=== PATIENT | female | born 1980 | race Caucasian/White ===

== ENCOUNTER 2022-02-02 08:49 | Emergency (ER) | payer SELFPAY ==
[2022-02-02 08:51] VITALS: BP 147/96; PULSE 87; RESP 18; TEMP 36.9; O2SAT 97; BMI 26.6
--- NOTE | 2022-02-02 09:14 | ED_ITS ---
HPI - Female Genitourinary General: Chief complaint: Urogenital-Female Stated complaint: FLANK PAIN Time Seen by Provider: 02/02/22 08:57 Source: patient Mode of arrival: EMS Limitations: no limitations History of Present Illness: 41-year-old female presents to the ER today for left flank pain and difficulty urinating. Patient reports she was seen 1 week ago at [facility] and was told she had a very large stone that might not passed. She reports she was given antibiotics however she has not picked them up due to transportation issues. Patient reports during the night she began having increased pain. She reports this morning she was only able to urinate small drops and had stabbing pain in the left side. She denies any fever or chills. Denies any blood in the urine. Patient reports she has been taking cranberry pills at home. Patient does admit to drug use this a.m. Review of Systems General: Reports: 10 or more systems reviewed and unremarkable except in HPI and below Physical Exam Narrative: EXAM NARRATIVE: Patient is in no acute distress. Patient's story is very difficult to follow. Const: COMMON NORMALS: no acute distress, average body habitus, patient oriented x3, healthy appearing, alert and well nourished Lymph: LYMPHATIC: no lymphadenopathy noted Resp: COMMON NORMALS: normal respiratory effort, No retractions, No use of accessory muscles and clear to auscultation bilaterally AUSCULTATION: clear to auscultation bilaterally Cardio: COMMON NORMALS: regular rate and regular rhythm RATE: regular rate RHYTHM: regular rhythm GI: COMMON NORMALS: Normal to inspection, nondistended, normoactive bowel sounds present, Soft to palpation and non-tender PALPATION: Yes Soft to palpation : COMMON NORMALS: Yes no CVA tenderness BLADDER/KIDNEY EXAM: Yes no CVA tenderness Back/Pelvis: COMMON NORMALS: no CVA tenderness, no thoracic nor lumbar tendern ess and thoraco-lumbar ROM normal Extremity: COMMON NORMALS: normal to inspection and full ROM Neuro: COMMON NORMALS: patient oriented x3 SENSORIUM/ORIENTATION: Yes alert Psych: APPEARANCE: Yes disheveled ACTIVITY/MOTOR BEHAVIOR: Yes disorganized behavior SPEECH: Yes slurred Skin: COMMON NORMALS: no rashes or lesions noted GENERAL SKIN EXAM: no rashes or lesions noted Course ED course: 41-year-old female presents to the ER today for left flank pain and difficulty urinating x1 week. Patient reports she was seen at [facility] last week and was told she had a large kidney stone that might not passed. Patient was given medication however she reports she did not fill it due to t ransportation issues. Patient reports she had increased pain during the night and this morning. She had difficulty urinating this morning and reports only a few drops of urination. She denies any fever or chills. On exam patient is in no acute distress. Patient did admit to drug use this morning and likely that is why her story is difficult to follow. We will try to get medical records from [facility] before proceeding with any more imaging at this time. We will go ahead and get a UA. Reevaluation(s): Reevaluation #1: Attempted to obtain medical records from [facility]. They reported they had never seen this patient before. We will proceed with a CT. Time: 09:27 Vital Signs: Vital signs: Vital Signs Temperature 98.4 F 02/02/22 08:51 Pulse Rate 87 02/02/22 08:51 Respiratory Rate 18 02/02/22 08:51 Blood Pressure 147/96 02/02/22 08:51 Pulse Oximetry 97 02/02/22 08:51 MDM - Female Medical Decision Making 41-year-old female presents to the ER today for left flank pain and difficulty urinating x1 week. Patient reports she was seen at [facility] last week and was told she had a large kidney stone that might not passed. Patient was given medication however she reports she did not fill it due to transportation issues. Patient reports she had increased pain during the night and this morning. She had difficulty urinating this morning and reports only a few drops of urination. She denies any fever or chills. On exam patient is in no acute distress. Patient did admit to drug use this morning and likely that is why her story is difficult to follow. After contacting [facility] and finding out patient has not been there, we went ahead and did a CT stone protocol here. There does not appear to be any stones in the ureter at this time. Patient was given tamsulosin and fluids while here also given Toradol for pain. Patient is noted to have low potassium so was given 40 meQ of potassium here. Patient also noted to have a UTI with nitrate positive. Patient given 1 dose of Cipro here but needs to supervisor forming and tempering her prescription outpatient. Discussed findings with patient. Recommended she go supervisor forming and tempering her medication at this time in order for the UTI to improve. I think likely the UTI is the cause of patient's symptoms. Recommended she follow-up with PCP in 5 to 7 days. Return to the ER with new or worsening symptoms. Patient verbalized understanding and is in agreement with the treatment plan. Lab Data : 02/02/22 09:10 02/02/22 09:10 Radiology Impressions Abdomen/Pelvis CT 02/02/22 09:26 IMPRESSION: 1. No hydronephrosis or hydroureter. 2. No acute intra-abdominal process. No inflammatory process. No obstruction. 3. No free fluid within the pelvis or within the dependent portions of the peritoneum. 4. Appendix normal. 5. Large amount of stool throughout the large bowel. Laboratory Results WBC 9.1 10^3/uL (4.0-10.0) 02/02/22 09:10 RBC 4.20 10^6/uL (4.1-5.3) 02/02/22 09:10 Hgb 13.4 g/dL (11.5-15.3) 02/02/22 09:10 Hct 38.7 % (37.0-47.0) 02/02/22 09:10 MCV 92.1 fl (81-99) 02/02/22 09:10 MCH 31.9 pg (28.0-34.0) 02/02/22 09:10 MCHC 34.6 g/dL (30.0-36.0) 02/02/22 09:10 RDW 12.4 % (12.1-15.1) 02/02/22 09:10 Plt Count 319 10^3/cmm (130-400) 02/02/22 09:10 MPV 11.4 fL (7.4-10.4) H 02/02/22 09:10 Neut % (Auto) 70.0 % 02/02/22 09:10 Lymph % (Auto) 20.5 % 02/02/22 09:10 Citrus % (Auto) 7.8 % 02/02/22 09:10 Eos % (Auto) 1.1 % 02/02/22 09:10 Baso % (Auto) 0.4 % 02/02/22 09:10 Neut # (Auto) 6.33 10^3/uL (1.8-7.7) 02/02/22 09:10 Lymph # (Auto) 1.9 10^3/uL (0.8-4.8) 02/02/22 09:10 Citrus # (Auto) 0.7 10^3/uL (0.2-0.9) 02/02/22 09:10 Eos # (Auto) 0.1 10^3/uL (0.0-0.8) 02/02/22 09:10 Baso # (Auto) 0.0 10^3/uL (0.0-0.1) 02/02/22 09:10 Nucleated RBC % (auto) 0 % 02/02/22 09:10 Nucleated RBCs # 0.0 /100WBC 02/02/22 09:10 Sodium 141 mmol/L (136-145) 02/02/22 09:10 Potassium 3.0 mmol/L (3.5-5.1) L 02/02/22 09:10 Chloride 104 mmol/L (98-107) 02/02/22 09:10 Carbon Dioxide 26 mmol/L (22-29) 02/02/22 09:10 Anion Gap 14.0 (5-19) 02/02/22 09:10 BUN 10 mg/dL (6-20) 02/02/22 09:10 Creatinine 0.7 mg/dL (0.5-0.9) 02/02/22 09:10 GFR Calculation 92.2 mL/min (90-130) 02/02/22 09:10 Glucose 100 mg/dL (65-115) 02/02/22 09:10 Calculated Osmolality 291 mOsm/kg (285-295) 02/02/22 09:10 Calcium 9.1 mg/dL (8.5-10.5) 02/02/22 09:10 Total Bilirubin 0.3 mg/dL (0.15-1.2) 02/02/22 09:10 AST 12 U/L (0-32) 02/02/22 09:10 ALT 10 U/L (0-33) 02/02/22 09:10 Alkaline Phosphatase 76 IU/L (35-105) 02/02/22 09:10 Total Protein 7.2 g/dL (6.6-8.7) 02/02/22 09:10 Albumin 4.2 g/dL (3.5-5.2) 02/02/22 09:10 Globulin 3.0 g/dL (1.3-4.6) 02/02/22 09:10 Urine Color Yellow (Yellow) 02/02/22 09:30 Urine Appearance Hazy (CLEAR) A 02/02/22 09:30 Urine pH 5 (5-7) 02/02/22 09:30 Ur Specific [place] 1.030 (1.005-1.030) 02/02/22 09:30 Urine Protein Neg (Negative) 02/02/22 09:30 Urine Glucose (UA) Norm (Normal) 02/02/22 09:30 Urine Ketones Negative (Negative) 02/02/22 09:30 Urine Blood 3+ (Negative) H 02/02/22 09:30 Urine Nitrate Positive (Negative) H 02/02/22 09:30 Urine Bilirubin Neg (Negative) 02/02/22 09:30 Urine Urobilinogen Norm mg/dL (Negative) 02/02/22 09:30 Ur Leukocyte Esterase 2+ (Negative) H 02/02/22 09:30 Urine RBC 40-50 /hpf (0-2) H 02/02/22 09:30 Urine WBC Too numerous to cnt /hpf (0-5) H 02/02/22 09:30 Ur Squamous Epith Cells 5-10 /hpf (0-5) H 02/02/22 09:30 Ur Transition Epith Cell 0-4 /hpf 02/02/22 09:30 Amorphous Sediment Not Reportable 02/02/22 09:30 Urine Bacteria 3+ /hpf (NONE) H 02/02/22 09:30 Critical Care Time Critical Care Time: Critical Care Time: No Discharge Plan Discharge Patient Disposition: Home Clinical Impression: Urinary tract infection, Hypokalemia Condition: Stable Prescriptions: New ciprofloxacin HCl 250 mg tablet 250 mg PO BID 5 Days Qty: 10 0RF Discharge Orders: Discharge ED (Routine); Ordered 02/02/22 Ordered By: Jennifer Carter Discharge Diet: Usual diet Discharge Activity: Resume usual activity Patient Instructions: Opioid Safety Activity Restrictions/Additional Instructions: Take Cipro as prescribed. Push fluids. Increase oral potassium intake. Follow-up with PCP in 3 to 5 days. Return to the ER with new or worsening symptoms. Coding Level of Care Code ED Learning And Development Assistant for Chg Fwd Exam Comprehensive
--- NOTE | 2022-02-02 09:26 | CTR_ITS ---
PROCEDURE INFORMATION: Exam: CT Abdomen And Pelvis Without Contrast Exam date and time: 02/02/2022 10:19 AM Age: 41 years old Clinical indication: Abdominal pain; Flank; Left; Additional info: L flankl pain TECHNIQUE: Imaging protocol: Computed tomography of the abdomen and pelvis without contrast. Radiation optimization: All CT scans at this facility use at least one of these dose optimization techniques: automated exposure control; mA and/or kV adjustment per patient size (includes targeted exams where dose is matched to clinical indication); or iterative reconstruction. COMPARISON: No relevant prior studies available. RADIATION DOSE METRICS: Total DLP (mGy-cm): 1135.33 FINDINGS: Liver: Normal. No mass. Gallbladder and bile ducts: Normal. No calcified stones. No ductal dilation. Pancreas: Normal. No ductal dilation. Spleen: Small accessory spleen. Adrenal glands: Normal. No mass. Kidneys and ureters: Renal calcifications bilaterally largest on the right of approximately 5 mm and on the left inferiorly of approximately 6 mm x 2 mm. No hydronephrosis or hydroureter. Stomach and bowel: Large amount of stool throughout the large bowel. Appendix: Appendix normal. Intraperitoneal space: No acute intra-abdominal process. No inflammatory process. No obstruction. No free fluid within the pelvis or within the dependent portions of the peritoneum. Vasculature: Unremarkable. No abdominal aortic aneurysm. Lymph nodes: Unremarkable. No enlarged lymph nodes. Urinary bladder: Unremarkable as visualized. Reproductive: Unremarkable as visualized. Bones/joints: Unremarkable. No acute fracture. Soft tissues: Unremarkable. CT/CT kidney stone [id number] IMPRESSION: 1. No hydronephrosis or hydroureter. 2. No acute intra-abdominal process. No inflammatory process. No obstruction. 3. No free fluid within the pelvis or within the dependent portions of the peritoneum. 4. Appendix normal. 5. Large amount of stool throughout the large bowel.
[2022-02-02 09:38] LABS: Basophils % 0.4 %; Eosinophils # 0.1 10^3/uL (0.0-0.8); Eosinophils % 1.1 %; Hematocrit 38.7 % (37.0-47.0); Hemoglobin 13.4 g/dL (11.5-15.3); Lymphocytes # 1.9 10^3/uL (0.8-4.8); Lymphocytes % 20.5 %; Mean Corpuscular HGB Conc 34.6 g/dL (30.0-36.0); Mean Corpuscular Hemoglobin 31.9 pg (28.0-34.0); Mean Corpuscular Volume 92.1 fl (81-99); Mean Platelet Volume 11.4 fL (7.4-10.4); Monocytes # 0.7 10^3/uL (0.2-0.9); Monocytes % 7.8 %; Neutrophils # 6.33 10^3/uL (1.8-7.7); Nucleated Red Blood Cells % 0 %; Platelet Count 319 10^3/cmm (130-400); Red Cell Distribution Width 12.4 % (12.1-15.1); White Blood Count 9.1 10^3/uL (4.0-10.0)
[2022-02-02 09:52] LABS: Alanine Aminotransferase 10 U/L (0-33); Albumin Level 4.2 g/dL (3.5-5.2); Alkaline Phosphatase 76 IU/L (35-105); Aspartate Amino Transferase 12 U/L (0-32); Blood Urea Nitrogen 10 mg/dL (6-20); Calcium 9.1 mg/dL (8.5-10.5); Carbon Dioxide 26 mmol/L (22-29); Chloride 104 mmol/L (98-107); Glomerular Filtration Rate 92.2 mL/min (90-130); Glucose 100 mg/dL (65-115); Osmolality Calculated 291 mOsm/kg (285-295); Sodium 141 mmol/L (136-145); Total Bilirubin 0.3 mg/dL (0.15-1.2); Total Protein 7.2 g/dL (6.6-8.7)
[2022-02-02 10:11] LABS: Add Urine Microscopic? YES; Bilirubin Urine Neg (Negative); Blood Urine 3+ (Negative); Glucose Urine UA Norm (Normal); Ketones Urine Negative (Negative); Leukocyte Esterase Urine 2+ (Negative); Nitrate Urine Positive (Negative); Protein Urine Neg (Negative); Urine Appearance Hazy (CLEAR); Urine Color Yellow (Yellow); Urobilinogen Urine Norm (Negative); pH Urine 5 (5-7)
[2022-02-02 10:17] LABS: Add Urine Culture? Yes; Bacteria Urine 3+ /hpf; RBC Urine 40-50 /hpf (0-2); Transitional Epi Cells Urine 0-4 /hpf; WBC Urine TOO NUMEROUS TO CNT /hpf (0-5)
[2022-02-02] MEDS: sodium chloride 0.9% 500 ML 999 ML IV (11:12)
[2022-02-02] MEDS: ketorolac 30 mg/mL INJ IVP (11:13)
[2022-02-02] MEDS: ciprofloxacin 500 mg Tablet 250 MG PO (11:15)
[2022-02-02] MEDS: tamsulosin 0.4 mg Capsule PO (11:15)
[2022-02-02] MEDS: potassium chloride ER 20 mEq Tablet 40 MEQ PO (11:15)
== END 2022-02-02 12:27 | disposition home or self-care (01) ==
PROVIDERS: Emergency Provider Physician Assistant
DX: N39.0 Urinary tract infection, site not specified (principal); E87.6 Hypokalemia
CPT/HCPCS: 74176; 80053; 81001; 85025; 87077; 87086; 87186; 96361; 96374; 99284; J1885; J7040

== ENCOUNTER → 2022-04-17 08:51 | Outpatient (BNVA) | payer SELFPAY | PROVIDERS: PCP Nurse Practitioner Family; Visit Provider Nurse Practitioner Family | DX: N39.0 Urinary tract infection, site not specified (principal); J01.90 Acute sinusitis, unspecified | CPT/HCPCS: 81000 ==

== ENCOUNTER → 2022-05-15 10:18 | Outpatient (BNVA) | payer SELFPAY | PROVIDERS: PCP Nurse Practitioner Family; Visit Provider Nurse Practitioner Family | DX: N39.0 Urinary tract infection, site not specified (principal) | CPT/HCPCS: 81000; 87077; 87086; 87184 ==

== ENCOUNTER 2025-02-07 17:01 | Emergency (ER) | payer SELFPAY ==
--- OUTSIDE RECORDS SUMMARY | 2025-01-31 13:40 | XMS_ITS | Encounter Summary ---
Author Organization [facility] Address [address] [place] [address] Care Team Providers Care Varnish Dipper Name Role Phone Stalin Marlow MD Primary Care Provider [phone] Reason for Visit * Reason Comments Flank Pain Perimenopause Lump in Breast Encounter Details Date Type Department Care Team (Late st Contact Info) Description 01/31/2025 1:40 PM CDT Office Visit [facility] [place] [address] [phone] Aimee Metzger NP [address] [place] [address] Urinary tract infection without hematuria, site unspecified (Primary Dx); Flank pain Social History Tobacco Use Types Packs/Day Years Used Date Smoking Tobacco: Never Smokeless Tobacco: Never Alcohol Use Standard Drinks/Week Comments Not Currently 0 (1 standard drink = 0.6 oz pur e alcohol) Feeling Safe Answer Date Recorded Are you in a relationship wi th someone who hurts you emotionally and/or physically? No 01/25/2025 Comments No Sex and Gender Information Value Date Recorded Sex Assigned at Not on file Legal Sex Female 1:34 PM CDT Gender Identity Not on file Sexual Orientation Not on file documented as of this encounter Last Filed Vital Signs Vital Sign Reading Time Taken Comments Blood Pressure 140/75 01/31/2025 1:33 PM CDT Pulse 76 01/31/2025 1:33 PM CDT Temperature 36.8 C (98.2 F) 01/31/2025 1:33 PM CDT Respiratory Rate 17 01/31/2025 1:33 PM CDT Oxygen Saturation 100% 01/31/2025 1:33 PM CDT Inhaled Oxygen Concentration - - Weight 83.9 kg (185 lb) 01/31/2025 1:33 PM CDT Height 167.6 cm (5' 6 ) 01/31/2025 1:33 PM CDT Body Mass Index 29.86 01/31/2025 1:33 PM CDT documented in this encounter Progress Notes * Aimee Metzger NP - 01/31/2025 1:32 PM CDT [facility] 01/31/2025 Subjective: Marisa Robles is a 44 y.o. female who comes today for evaluation of Flank Pain, Perimenopause, and Lump in Breast . History of Present Illness The patient is a 44-year-old female here for kidney function and possible kidney stones. She has been experiencing a severe urinary tract infection (UTI), which has not responded to antibiotic treatment. She sought emergency care in [place], where it was determined that her body was rejecting the antibiotics. She is currently unemployed and without insurance, which has limited her ability to fill prescriptions. She has an appointment scheduled with a primary care physician on 05/09/2025, but she is uncertain about how to proceed with her current health issues, including her cerebral palsy. Review of Systems Constitutional: Negative for chills and fever. Respiratory: Negative for shortness of breath. Cardiovascular: Negative for chest pain. Genitourinary: Positive for dysuria and urgency. Musculoskeletal: Negative for myalgias. All other systems reviewed and are negative. Objective: Vitals: 01/31/25 1333 Temp: 98.2 ??F (36.8 ??C) Pulse: 76 BP: (!) 140/75 Resp: 17 SpO2: 100% Physical Exam Vitals and nursing note reviewed. HENT: Mouth/Throat: Mouth: Mucous membranes are moist. Pharynx: Oropharynx is clear. Eyes: Pupils: Pupils are equal, round, and reactive to light. Cardiovascular: Rate and Rhythm: Normal rate and regular rhythm. Pulses: Normal pulses. Heart sounds: Normal heart sounds. Musculoskeletal: General: Normal range of motion. Cervical back: Normal range of motion and neck supple. Skin: General: Skin is warm and dry. Capillary Refill: Capillary refill takes less than 2 seconds. Neurological: Mental Status: She is alert and oriented to person, place, and time. Mental status is at baseline. Psychiatric: Mood and Affect: Mood normal. Behavior: Behavior normal. Past medical history, surgical history and social history reviewed. Past Medical History: Diagnosis Date Breast lump or mass Cerebral palsy (CMS/HCC) Depression Kidney calculus Assessment/Plan: ICD-10-CM ICD-9-CM 1. Urinary tract infection without hematuria, site unspecified N39.0 599.0 ciprofloxacin HCl (Cipro) 500 mg tablet 2. Flank pain R10.9 789.09 POC URINALYSIS DIPSTICK AUTOMATED Assessment & Plan 1. Urinary Tract Infection (UTI). - Reports significant UTI and history of antibiotic resistance. - Urine culture ordered to identify appropriate antibiotic. - Antibiotic prescription sent to pharmacy; advised to avoid sulfa medications. - Will be contacted to adjust treatment based on culture results. 2. Cerebral Palsy. - Experiencing ongoing issues related to cerebral palsy. - Appointment set for 05/09/2025 with Primary provider; currently without insurance. - Advised to keep the appointment to establish care with a primary provider. - Discussed the importance of managing symptoms and complications. JONA WelchC The author of this note, patient (or authorized brewery representative), and all other persons present consent to the audio recording of this visit for charting documentation purposes. This note was automatically generated by a [employer] AI technology ([employer]), reviewed, edited, and finalized by Aimee Metzger NP. Depression Screen Positive: PHQ-2 score >= 3 or PHQ-9 score >= 9 PHQ-2 Total: 0 (01/31/2025 1:32 PM) DEPRESSION PLAN OF CARE Her depression screen was negative. (PHQ2 <3, PHQ9 <10, [place] <11) documented in this encounter Miscellaneous Notes * Addendum Note - Georgia Workman - 01/31/2025 4:02 PM CDTAddended by: GEOR[place]IA WORKMAN on: 01/31/2025 04:02 PM Modules accepted: Orders documented in this encounter Plan of Treatment Upcoming Encounters Date Type Department Care Team (Late st Contact Info) Description 05/09/2025 4:00 PM CDT Office Visit [facility] [address] [place] [phone] Stalin Marlow MD [address] [place] [phone] documented as of this encounter Procedures Procedure Name Priority Date/Time Associated Diagnosis Comments POC URINALYSIS DIPSTICK AUTOMATED Routine 01/31/2025 5:54 PM CDT Flank pain POC URINALYSIS DIPSTICK AUTOMATED Routine 01/31/2025 3:42 PM CDT Flank pain documented in this encounter Results * (ABNORMAL) POC URINALYSIS DIPSTICK AUTOMATED (01/31/2025 5:54 PM CDT) COLOR UA POC Red(A) Pale to Dark Yellow [facility] CLARITY UA POC Cloudy(A) Clear, Other [facility] GLUCOSE UA POC Negative Negative, Normal [facility] BILIRUBIN UA POC 1+(A) Negative [facility] KETONES UA POC Negative Negative [facility] SPECIFIC GRAVITY UA POC >=1.030 1.000 - 1.030 [facility] BLOOD UA POC 3+(A) Negative [facility] PH UA POC 5.5 5.0 - 8.0 [facility] IC [facility] PROTEIN UA POC 3+(A) Negative [facility] UROBILINOGEN UA POC 1.0 <2.0 mg/dL [facility] NITRITE UA POC Positive(A) Negative [facility] LEUKOCYTE ESTERASE UA POC Trace(A) Negative [facility] KIT LOT NUMBER POC [phone] [facility] KIT EXP DATE POC 02/06/25 [facility] Urine 01/31/2025 5:54 PM CDT Aimee [place] ART TRACER POINT OF CARE TESTING Final Re sult Performing Organization Address [facility] [[email or web address]] Co de Phone Number [facility] CLIA# [id number] [address] [facility] [address] [facility] [address] [place], [place] [address] * (ABNORMAL) POC URINALYSIS DIPSTICK AUTOMATED (01/31/2025 3:42 PM CDT) COLOR UA POC Yellow Pale to Dark Yellow [facility] CLARITY UA POC Clear Clear, Other [facility] GLUCOSE UA POC Negative Negative, Normal [facility] BILIRUBIN UA POC Negative Negative [facility] [place] UA POC Negative Negative [facility] SPECIFIC GRAVITY UA POC 1.010 1.000 - 1.030 [facility] BLOOD UA POC Negative Negative [facility] PH UA POC 6.0 5.0 - 8.0 [facility] IC [facility] PROTEIN UA POC Negative Negative [facility] UROBILINOGEN UA POC 0.2 <2.0 mg/dL [facility] NITRITE UA POC Positive(A) Negative [facility] LEUKOCYTE ESTERASE UA POC 2+(A) Negative [facility] KIT LOT NUMBER POC [phone] [facility] KIT EXP DATE POC 02/06/25 [facility] Urine 01/31/2025 3:42 PM CDT Aimee [place] ART TRACER POINT OF CARE TESTING Final Re sult [facility] CLIA# [id number] [address] [facility] [address] [address] documented in this encounter Visit Diagnoses Diagnosis Urinary tract infection without hematuria, site unspecified- Primary Flank pain Abdominal pain, unspecified site documented in this encounter Care Teams Varnish Dipper Relationship Specialty Start Date End Date Stalin Marlow MD [address] [phone] PCP - General Family Practice 01/31/25 documented as of this encounter
[2025-02-07 17:02] VITALS: PULSE 70; RESP 18; TEMP 36.8; O2SAT 97; BMI 29.8
--- NOTE | 2025-02-07 17:07 | ED_ITS ---
HPI - General Adult 2 General: Chief complaint: General Medical Stated complaint: Heat related Time Seen by Provider: 02/07/25 17:02 Source: patient and EMS Mode of arrival: EMS Limitations: no limitations History of Present Illness: 44-year-old female states that she has b een walking out in the heat for 4 hours states she feels like she is having some heat exhaustion she is feeling weak and tired having some slight nausea she denies passing out denies any chest pain denies any vomiting. States she has felt improved since getting out of the heat. Associated symptoms: Deny chest pain, dyspnea, headache(s), nausea, rash or vomiting Related Data Previous Rx's ?Medication ?Instructions ?Recorded duloxetine 60 mg capsule,delayed 60 mg PO DAILY #30 ca ps 05/15/22 release (Cymbalta) hydroxyzine HCl 25 mg tablet 25 mg PO .at hs PRN itchi ng #30 05/15/22 tabs nitrofurantoin 100 mg PO Q12H 5 days #10 ca ps 05/15/22 monohydrate/macrocrystals 100 mg capsule (Macrobid) Allergies Allergy/AdvReac Type Severity Reaction Status Date / Time cephalexin Allergy ALGY-Rash Verified 05/15/22 09:52 Review of Systems 2 Const: Reports: fatigue; Denies: fever(s), chills, body aches or change in appetite ENMT: Denies: throat pain or dental pain Card: Denies: chest pain Resp: Denies: dyspnea GI: Denies: abdominal pain, nausea, vomiting or diarrhea Musc: Denies: neck pain or back pain Skin/Breast: Denies: rash Neuro: Denies: headache(s) PFSH ED 2 PFSH: Medical History Depression Hx of septic shock PTSD (post-traumatic stress disorder) Hx of recurrent urinary tract infection Family History Mother Psychiatric illness Father Drug overdose CAD (coronary artery disease) Social History Smoking and tobacco/nicotine status: never used tobacco/nicotine Physical Exam 2 Const: COMMON NORMALS: no acute distress, patient oriented x3 and healthy appearing HENMT: COMMON NORMALS: normocephalic and atraumatic HEAD & SCALP: n ormocephalic and atraumatic Neck/C-Spine: COMMON NORMALS: full ROM and supple Chest: COMMONS NORMALS: normal inspection of the chest Resp: COMMON NORMALS: normal respiratory effort Cardio: COMMON NORMALS: regular rate, regular rhythm and No murmurs present (Cardio) RATE: regular rate RHYTHM: regular rhythm Extremity: COMMON NORMALS: normal to inspection and full ROM Neuro: COMMON NORMALS: patient oriented x3, moves all extremities and no focal motor deficits Psych: COMMON NORMALS: mental status grossly normal, Normal thought process present and cooperative THOUGHT PROCESS: Normal thought process present Skin: COMMON NORMALS: no rashes or lesions noted and no wounds GENERAL SKIN EXAM: no rashes or lesions noted Course 2 Vital Signs: Vital signs: Vital Signs Temperature 98.2 F 02/07/25 17:02 Pulse Rate 70 02/07/25 17:02 Respiratory Rate 18 02/07/25 17:08 Blood Pressure 145/88 02/07/25 17:44 Pulse Oximetry 97 02/07/25 17:02 Oxygen Delivery Me thod Room Air 02/07/25 17:02 MDM - General Adult Medical Decision Making Patient presents here with heat exposure kidney function here is normal feels improved after fluids she stable for discharge follow-up with PCP return if worsening. Medical Records I reviewed the patient's medical records. Lab Data I reviewed the patient's lab results. 02/07/25 16:11 02/07/25 16:11 Laboratory Results WBC 11.19 10^3/uL (3.29-11.43) 02/07/25 16:11 RBC 4.85 10^6/uL (3.85-5.65) 02/07/25 16:11 Hgb 15.10 g/dL (11.27-16.99) 02/07/25 16:11 Hct 46.5 % (36-47) 02/07/25 16:11 MCV 95.9 fl (85-98) 02/07/25 16:11 MCH 31.1 pg (27-33) 02/07/25 16:11 MCHC 32.5 g/dL (30-55) 02/07/25 16:11 RDW 13.1 % (12.1-15.1) 02/07/25 16:11 Plt Count 436 10^3/cmm (157-399) H 02/07/25 16:11 MPV 11.7 fL (7.4-10.4) H 02/07/25 16:11 Neut % (Auto) 77.3 % 02/07/25 16:11 Lymph % (Auto) 14.6 % 02/07/25 16:11 Orange % (Auto) 5.0 % 02/07/25 16:11 Eos % (Auto) 2.2 % 02/07/25 16:11 Baso % (Auto) 0.6 % 02/07/25 16:11 Neut # (Auto) 8.65 10^3/uL (1.8-7.7) H 02/07/25 16:11 Lymph # (Auto) 1.6 10^3/uL (0.8-4.8) 02/07/25 16:11 Orange # (Auto) 0.6 10^3/uL (0.2-0.9) 02/07/25 16:11 Eos # (Auto) 0.3 10^3/uL (0.0-0.8) 02/07/25 16:11 Baso # (Auto) 0.1 10^3/uL (0.0-0.1) 02/07/25 16:11 Nucleated RBC % (auto) 0 % 02/07/25 16:11 Nucleated RBCs # 0.0 /100WBC 02/07/25 16:11 Sodium 151 mmol/L (136-145) H 02/07/25 16:11 Potassium 3.6 mmol/L (3.5-5.1) 02/07/25 16:11 Chloride 111 mmol/L (98-107) H 02/07/25 16:11 Carbon Dioxide 24 mmol/L (22-29) 02/07/25 16:11 Anion Gap 19.6 (5-19) H 02/07/25 16:11 BUN 10 mg/dL (6-20) 02/07/25 16:11 Creatinine 0.9 mg/dL (0.5-0.9) 02/07/25 16:11 GFR Calculation 68.0 mL/min (90-130) L 02/07/25 16:11 Glucose 135 mg/dL (65-115) H 02/07/25 16:11 Calculated Osmolality 313 mOsm/kg (285-295) H 02/07/25 16:11 Calcium 9.9 mg/dL (8.5-10.5) 02/07/25 16:11 Total Bilirubin 0.4 mg/dL (0.15-1.2) 02/07/25 16:11 AST 14 U/L (0-32) 02/07/25 16:11 ALT 9 U/L (0-33) 02/07/25 16:11 Alkaline Phosphatase 92 U/L (35-105) 02/07/25 16:11 Creatine Kinase 109 U/L (26-192) 02/07/25 16:11 Total Protein 7.7 g/dL (6.6-8.7) 02/07/25 16:11 Albumin 4.6 g/dL (3.5-5.2) 02/07/25 16:11 Globulin 3.1 g/dL (1.3-4.6) 02/07/25 16:11 No radiology studies performed this visit Discharge Plan Discharge Patient Disposition: Home Clinical Impression: Heat exposure Condition: Stable Prescriptions: No Action nitrofurantoin monohyd/m-cryst [Macrobid] 100 mg capsule 100 mg PO Q12H 5 Days Qty: 10 0RF Rx Instructions: must administer with a meal/food duloxetine [Cymbalta] 60 mg capsule,delayed release(DR/EC) 60 mg PO DAILY Qty: 30 0RF hydroxyzine HCl 25 mg tablet 25 mg PO .at hs PRN (Reason: itching) Qty: 30 0RF Discharge Orders: Discharge ED (Routine); Ordered 02/07/25 Ordered By: Astrid Clayton Referrals: Lesly Lopez FNP [Nurse Practitioner, Family Practice] Discharge Diet: Advance as tolerated Discharge Activity: Resume usual activity Patient Instructions: Heat Exhaustion (ED) Print Language: Greek Coding Level of Care Code ED Insurance Office Supervisor for Isamar Cole
[2025-02-07 17:08] VITALS: RESP 18
--- OUTSIDE RECORDS SUMMARY | 2025-02-07 17:08 | XMS_ITS | Encounter Summary ---
Author Organization [facility] Address [address] [place] [address] Care Team Providers Care Water Team Leader Name Role Phone Stalin Marlow MD Primary Care Provider +1 [phone] Encounter Details Date Type Department Care Team ([facility] Contact Info) Description 01/27/2025 Results Follow-Up [facility] Emergency Medicine [address] [address] Eliane Mckeon RN URINE CULTURE Social History Tobacco Use Types Packs/Day Years [...] on file documented as of this encounter Plan of Treatment Upcoming Encounters Date Type Department Care Team (Late Contact Info) Description 05/09/2025 4:00 PM CDT Office Visit [facility] Medicine [place] [address] [phone] Stalin Marlow MD [address] [phone] documented as of this encounter Visit Diagnoses Not on filedocumented in this encounter Care Teams Water Team Leader Relationship Specialty Start Date End Date Stalin Marlow MD [facility] [address] [phone] PCP - General Family Practice 01/31/25 documented as of this encounter
--- OUTSIDE RECORDS SUMMARY | 2025-02-07 17:08 | XMS_ITS | Encounter Summary ---
Author Organization [facility] Address [address] [place] [address] Care Team Providers Care Cable Installer Name Role Phone Stalin Marlow MD Primary Care Provider [phone] [phone] Encounter Details Date Type Department Care Team (Late st Contact Info) Description 01/31/2025 External Device Data [facility] ABSTRACTION Provider, Abstract NO ADDRESS ON FILE Social History Tobacco Use Types Packs/Day Years [...] Description 05/09/2025 4:00 PM CDT Office Visit [facility] Family Medicine [place] [address] [phone] Stalin Marlow MD [address] [address] documented as of this encounter Visit Diagnoses Not on filedocumented in this encounter Care Teams Cable Installer Relationship Specialty Start Date End Date Stalin Marlow MD [address] [phone] PCP - General Family Practice 01/31/25 documented as of this encounter
--- OUTSIDE RECORDS SUMMARY | 2025-02-07 17:09 | XMS_ITS | Encounter Summary ---
Author Organization [facility] Address [address] [place] [address] Care Team Providers Care Child Protective Investigator Name Role Phone Stalin Marlow MD Primary Care Provider [phone] [phone] Encounter Details Date Type Department Care Team [...] Description 05/09/2025 4:00 PM CDT Office Visit [facility] Family Medicine [place] [address] [phone] Stalin Marlow MD [address] [phone] documented as of this encounter Visit Diagnoses Not on filedocumented in this encounter Care Teams Child Protective Investigator Relationship Specialty Start Date End Date Stalin Marlow MD [address] [phone] PCP - General Family Practice 01/31/25 documented as of this encounter
--- OUTSIDE RECORDS SUMMARY | 2025-02-07 17:09 | XMS_ITS | Clinical Summary ---
Author Organization [facility] Address [address] [facility] [address] [place] [address] Phone Care Team Providers Care Fire Crew Specialist Name Role Phone Stalin Marlow MD Primary Care Provider +1 [phone] Allergies Active Allergy Reactions Criticality Noted Date Comments Cephalexin Rash Low 01/31/2025 Sulfa (Sulfonamide Antibiotics) Rash Medium 01/08 Sulfamethoxazole-Trimethoprim Rash Low 2024 Medications DULoxetine (CYMBALTA) 60 mg Capsule, Delayed Release(E.C.) Take 60 mg by mouth daily. Active ciprofloxacin HCl (Cipro) 500 mg tabletIndicatio ns:Urinary tract infection without hematuria, site unspecified Take 1 Tablet (500 mg) by mouth 2 times daily for 7 days. 14 Tablet 5 025 Active hydrOXYzine HCL (ATARAX) 25 mg tablet Take 25 mg by mouth daily at bedtime. 025 Discontinued nitrofurantoin (MACROBID) 100 mg capsule Take 1 Capsule (100 mg) by mouth 2 times daily. 14 Capsule 5 025 Discontinued Active Problems Problem Noted Date Diagnosed Date Rib contusion, left, initial encounter 2 History of rib fracture 04/15/2022 Encounters Date Type Department Care Team Description 01/31/2025 1:40 PM CDT Office Visit [facility] 104 [facility] [address] [place] [address] Aimee Metzger, FIDENCIO Urinary tract infection without hematuria, site unspecified (Primary Dx); Flank pain 01/31/2025 External Device Data STL ABSTRACTION Provider, Abstract 01/31/2025 External Device Data STL ABSTRACTION Provider, Abstract 01/31/2025 External Device Data STL ABSTRACTION Provider, Abstract 01/27/2025 Results Follow-Up [facility] Emergency Medicine [address] [place] [address] Eliane Mckeon RN URINE CULTURE 01/25/2025 10:13 PM CDT - 01/26/2025 12:15 AM CDT Emergency [facility] Emergency Medicine [address] [place] [phone] Robinson Munoz, Acute cystitis without hematuria (Primary Dx); Acute diarrhea Discharge Disposition: Home or Self Care 01/25/2025 Travel 01/25/2025 External Device Data STL ABSTRACTION Provider, Abstract 01/10/2025 External Device Data STL ABSTRACTION Provider, Abstract 12/29/2024 External Device Data STL ABSTRACTION Provider, Abstract 11/08/2024 External Device Data STL ABSTRACTION Provider, Abstract from Last 3 Months Social History Tobacco Use Types Packs/Day Years [...] on file Sexual Orientation Not on file Last Filed Vital Signs Vital Sign Reading [...] Mass Index 29.86 01/31/2025 1:33 PM CDT Plan of Treatment Upcoming Encounters Date Type Department Care Team (Late st Contact Info) Description 05/09/2025 4:00 PM CDT Office Visit [facility] [address] [phone] Stalin Marlow MD [address] [phone] Health Maintenance Due Date Last Done Comments Pre-Diabetes and Diabetes Screening 1980 DTAP/TDAP/TD VACCINES (1 - Tdap) 1999 HEPATITIS B VACCINES (1 of 3 - 19+ 3-dose series) 1999 HPV/Cotest (21-29) 2001 CERVICAL CANCER SCREENING 2010 HPV/Cotest (30-65) 2010 PAP SMEAR 2010 INFLUENZA VACCINE (#1) 2024 BREAST CANCER SCREENING 05/01/2025 Post poned from 2020 (Patient Refused) HPV VACCINES Aged Out No longer eligi ble based on patient's age to complete this topic Procedures Procedure Name Priority Date/Time Associated Diagnosis Comments POC URINALYSIS DIPSTICK AUTOMATED Routine 01/31/2025 5:54 PM CDT Flank pain POC URINALYSIS DIPSTICK AUTOMATED Routine 01/31/2025 3:42 PM CDT Flank pain EKG 12-LEAD Routine 01/25/2025 10:26 PM CDT URINALYSIS MICROSCOPY ONLY Stat 01/25/2025 10:16 PM CDT URINALYSIS W/REFLEX MICROSCOPIC Stat 01/25/2025 10:16 PM CDT COMPREHENSIVE METABOLIC PANEL Stat 01/25/2025 10:16 PM CDT CBC WITH DIFFERENTIAL Stat 01/25/2025 10:16 PM CDT URINE CULTURE Stat 01/25/2025 10:16 PM CDT from Last 3 Months Results * (ABNORMAL) POC URINALYSIS DIPSTICK AUTOMATED (01/31/2025 5:54 PM CDT) Only the most recent of2 resultswithin the time period is included. COLOR UA POC Red(A) Pale to Dark Yellow [facility] CLARITY UA POC Cloudy(A) Clear, Other [facility] GLUCOSE UA POC Negative Negative, Normal [facility] BILIRUBIN UA POC 1+(A) Negative [facility] KETONES UA POC Negative Negative [facility] SPECIFIC GRAVITY UA POC >=1.030 1.000 - 1.030 [facility] BLOOD UA POC 3+(A) Negative [facility] LINIC [facility] PH UA POC 5.5 5.0 - 8.0 [facility] IC [facility] PROTEIN UA POC 3+(A) Negative [facility] UROBILINOGEN UA POC 1.0 <2.0 mg/dL [facility] NITRITE UA POC Positive(A) Negative [facility] LEUKOCYTE ESTERASE UA POC Trace(A) Negative [facility] KIT LOT NUMBER POC [id number] [facility] KIT EXP DATE POC 02/06/25 [facility] Urine 01/31/2025 5:54 PM CDT us Aimee Metzger PRODUCTION CONTROL TECHNOLOGIST POINT OF CARE TESTING Final Re sult [facility] CLIA# [id number] [address] [place] [address] * EKG Interpretation (01/25/2025 10:26 PM CDT) Narrative Robinson Munoz DO - 01/25/2025 10:26 PM CDT Robinson Munoz DO 01/26/2025 5:25 AM EKG Interpretation Date/Time: 01/25/2025 10:26 PM Performed by: Robinson Munoz DO Authorized by: Robinson Munoz DO ECG interpreted by ED Physician in the absence of a medical scheduler: yes Rate: ECG rate: 70 Comments: Twelve-lead EKG done 25 January 2025 at 2204 hrs. Atrial rate 70, ventricular rate 70, CO interval 0.16, QRS duration of 0.08, normal QTc, there is artifact, there are no acute changes, this is normal sinus rhythm. Robinson Munoz DO ECG ORDERABLES Final Res ult * (ABNORMAL) URINALYSIS MICROSCOPY ONLY (01/25/2025 10:16 PM CDT) WBC UA 6-10(A) 0 - 2 /hpf 01/25/2025 10:50 PM CDT [facility] RBC UA 0-2 0 - 2 /hpf 01/25/2025 10:50 PM CDT [facility] BACTERIA UA 1+(A) Negative /hpf 01/25/2025 10:50 PM CDT [facility] EPITHELIAL CELLS, URINE 0-5 0 - 5 /hpf 01/25/2025 10:50 PM CDT [facility] Urine URINE SPECIMEN OBTAINED BY CLEAN CATCH PROCEDURE / Unknown Collection / Unknown 01/25/2025 10:16 PM CDT 01/25/2025 10:42 PM CDT Robinson Munoz DO URINE ORDERABLES Final Re sult [facility] CLIA # [id number] [address] [place] [address] * (ABNORMAL) CBC WITH DIFFERENTIAL (01/25/2025 10:16 PM CDT) WBC 9.4 4.0 - 10.0 K/uL 01/25/2025 10:50 PM CDT [facility] RBC 4.69 3.93 - 5.22 M/uL 01/25/2025 10:50 PM [facility] HEMOGLOBIN 14.3 11.2 - 15.7 g/dL 01/25/2025 10:50 PM [facility] HEMATOCRIT 43.0 34.1 - 44.9 % 01/25/2025 10:50 PM [facility] MCV 91.7 79.4 - 94.8 fL 01/25/2025 10:50 PM [facility] MCH 30.5 25.6 - 32.2 pg 01/25/2025 10:50 PM [facility] MCHC 33.3 32.2 - 35.5 g/dL 01/25/2025 10:50 PM [facility] RDW 13.2 11.0 - 14.5 % 01/25/2025 10:50 PM [facility] RDW-STDEV 43.8 36.9 - 56.9 fL 01/25/2025 10:50 PM [facility] PLATELETS 348(H) 163 - 337 K/uL 01/25/2025 10:50 PM [facility] MPV 11.0 10.0 - 14.8 fL 01/25/2025 10:50 PM [facility] NEUTROPHILS 66 34 - 71 % 01/25/2025 10:50 PM [facility] LYMPHOCYTES 21 19 - 52 % 01/25/2025 10:50 PM [facility] MONOCYTES 10 5 - 13 % 01/25/2025 10:50 PM [facility] EOSINOPHILS 2 1 - 6 % 01/25/2025 10:50 PM [facility] BASOPHILS 1 0 - 1 % 01/25/2025 10:50 PM [facility] IMMATURE GRANULOCYTES 0 % 01/25/2025 10:50 PM [facility] NEUTROPHIL ABSOLUTE 6.20(H) 1.56 - 6.13 K/uL 01/25/2025 10:50 PM [facility] LYMPHOCYTE ABSOLUTE 1.98 1.20 - 3.40 K/uL 01/25/2025 10:50 PM [facility] MONOCYTE ABSOLUTE 0.92(H) 0.24 - 0.36 K/uL 01/25/2025 10:50 PM CDT [facility] EOSINOPHIL ABSOLUTE 0.23 0.04 - 0.36 K/uL 01/25/2025 10:50 PM CDT [facility] BASOPHILS ABSOLUTE 0.06 0.01 - 0.08 K/uL 01/25/2025 10:50 PM CDT [facility] IMMATURE GRANULOCYTES ABSOLUTE 0.02 K/uL 01/25/2025 10:50 PM CDT [facility] Blood Collection / Unknown 01/25/2025 10:16 PM CDT 01/25/2025 10:42 PM CDT us Robinson Munoz DO HEMATOLOGY ORDERABLES Fin al Result [facility] CLIA # [id number] [address] [place] [address] * (ABNORMAL) URINALYSIS WITH REFLEX MICROSCOPIC (01/25/2025 10:16 PM CDT) COLOR UA Yellow Pale to Dark Yellow 01/25/2025 10:50 PM [facility] CLARITY UA Clear Clear 01/25/2025 10:50 PM [facility] SPECIFIC GRAVITY UA >=1.030 1.003 - 1.035 01/25/2025 10:50 PM T [facility] PH UA 5.5 5.0 - 8.0 01/25/2025 10:50 PM [facility] LEUKOCYTE ESTERASE UA 1+(A) Negative 01/25/2025 10:50 PM [facility] NITRITE UA Positive(A) Negative 01/25/2025 10:50 PM [facility] PROTEIN UA Negative Negative 01/25/2025 10:50 PM CDT [facility] GLUCOSE UA Negative Negative 01/25/2025 10:50 PM CDT [facility] KETONES UA Negative Negative 01/25/2025 10:50 PM CDT [facility] UROBILINOGEN UA 0.2 <2.0 mg/dL 10:50 PM CDT [facility] BILIRUBIN UA Negative Negative 01/25/2025 10:50 PM CDT [facility] BLOOD UA Negative Negative 01/25/2025 10:50 PM CDT [facility] Urine URINE SPECIMEN OBTAINED BY CLEAN CATCH PROCEDURE / Unknown Collection / Unknown 01/25/2025 10:16 PM CDT 01/25/2025 10:42 PM CDT Robinson Munoz DO URINE ORDERABLES Final Re sult [facility] CLIA # [id number] [address] [place] [address] * (ABNORMAL) URINE CULTURE (01/25/2025 10:16 PM CDT) CULTURE ESCHERICHIA COLI(A) MONIKA MCG/ML 01/28/2025 6:57 AM CDT [facility] Urine URINE SPECIMEN OBTAINED BY CLEAN CATCH PROCEDURE / Unknown Collection / Unknown 01/25/2025 10:16 PM CDT 01/25/2025 11:54 PM CDT Narrative Organism Antibiotic Method Susceptibility Escherichia coli CEFAZOLIN MONIKA MCG/ML <=4 mcg/mL: Susceptible Comment:Cefazolin hoover sceptible interpretation applies to uncomplicated urinary tract infections (UTI) only. If patient has a complicated UTI consider either using a 3rd generation cephalosporin (ie- ceftriaxone). If cefazolin susceptibility testing is necessary for treatment of this patient, contact Microbiology for additional testing. Escherichia coli CEFTRIAXONE MONIKA MCG/ML <=1 mcg/mL: Susceptible Escherichia coli GENTAMICIN MONIKA MCG/ML <=1 mcg/mL: Susceptible Escherichia coli TOBRAMYCIN MONIKA MCG/ML <=1 mcg/mL: Susceptible Escherichia coli CIPROFLOXACIN MONIKA MCG/ML <=0.25 mcg/mL: Susceptible Escherichia coli LEVOFLOXACIN MONIKA MCG/ML <=0.12 mcg/mL: Susceptible Escherichia coli TRIMETHOPRIM/ SULFAMETHOXAZOLE MONIKA MCG/ML <=20 mcg/mL: Susceptible Escherichia coli NITROFURANTOIN MONIKA MCG/ML <=16 mcg/mL: Susceptible Escherichia coli AMPICILLIN MONIKA MCG/ML 4 mcg/mL: Susceptible Escherichia coli AMPICILLIN/ SULBACTAM MONIKA MCG/ML <=2 mcg/mL: Susceptible Escherichia coli PIPERACILLIN/ TAZOBACTAM MONIKA MCG/ML <=4 mcg/mL: Susceptible Comment:Aminoglycosides shou ld not be used as monotherapy for infections outside the urinary tract. Consultation with an infectious diseases specialist is recommended. Roibnson Munoz DO MICROBIOLOGY - GENERAL OR DERABLES Final Result [facility] # [id number] [address] [place] [address] * (ABNORMAL) COMPREHENSIVE METABOLIC PANEL (01/25/2025 10:16 PM T) SODIUM 142 136 - 145 mmol/L 01/25/2025 11:00 PM [facility] POTASSIUM 4.4 3.5 - 5.1 mmol/L 01/25/2025 11:00 PM [facility] Comment:Slightly hemolyzed. Result may be falsely elevated. CHLORIDE 108(H) 98 - 107 mmol/L 01/25/2025 11:00 PM [facility] CO2 21(L) 22 - 29 mmol/L 01/25/2025 11:00 PM [facility] CALCIUM 9.8 8.6 - 10.0 mg/dL 01/25/2025 11:00 PM [facility] BUN 9 6 - 20 mg/dL 01/25/2025 11:00 PM [facility] CREATININE 0.68 0.51 - 0.95 mg/dL 01/25/2025 11:00 PM [facility] GLUCOSE 130(H) 74 - 99 mg/dL 01/25/2025 11:00 PM [facility] TOTAL PROTEIN 7.2 6.6 - 8.7 g/dL 01/25/2025 11:00 PM [facility] ALBUMIN 4.0 3.5 - 5.2 g/dL 01/25/2025 11:00 PM [facility] BILIRUBIN TOTAL 0.2 0.0 - 1.2 mg/dL 01/25/2025 11:00 PM [facility] ALKALINE PHOSPHATASE 88 35 - 104 U/L 01/25/2025 11:00 PM [facility] AST 22 0 - 35 U/L 01/25/2025 11:00 PM [facility] Comment:Hemolysis present. R esult may be falsely elevated. ALT 7 0 - 35 U/L 01/25/2025 11:00 PM [facility] GFR >60 >=60 mL/min/1.7 3 sq meter 01/25/2025 11:00 PM [facility] Comment:eGFR calculated with 2020 CKD-EPI equation. Vegetarian diet, extremely high or low muscle mass, and may affect results. Cystatin C with Glomerular Filtration Rate is a suitable alternative for these patients. ANION GAP 13 5 - 20 mmol/L 01/25/2025 11:00 PM [facility] Blood Collection / Unknown 01/25/2025 10:16 PM CDT 01/25/2025 10:42 PM CDT Robinson Munoz DO CHEMISTRY ORDERABLES Krystal l Result [facility] CLIA # [id number] [address] [address] from Last 3 Months Care Teams Fire Crew Specialist Relationship Specialty Start Date End Date Stalin Marlow MD [address] [phone] PCP - General Family Practice 01/31/25
--- OUTSIDE RECORDS SUMMARY | 2025-02-07 17:09 | XMS_ITS | Encounter Summary ---
Author Organization [facility] Address [address] [place] [address] Care Team Providers Care Nursing Home Assistant Name Role Phone Stalin Marlow MD Primary Care Provider +1 [phone] Encounter Details Date Type Department Care Team [...] Description 05/09/2025 4:00 PM CDT Office Visit [facility] Family Medicine [place] [address] [phone] Stalin Marlow MD [address] [phone] documented as of this encounter Visit Diagnoses Not on filedocumented in this encounter Care Teams Nursing Home Assistant Relationship Specialty Start Date End Date Stalin Marlow MD [address] [phone] PCP - General Family Practice 01/31/25 documented as of this encounter
[2025-02-07 17:22] LABS: Hematocrit 46.5 % (36-47); Hemoglobin 15.10 g/dL (11.27-16.99); Mean Corpuscular HGB Conc 32.5 g/dL (30-55); Mean Corpuscular Hemoglobin 31.1 pg (27-33); Mean Corpuscular Volume 95.9 fl (85-98); Nucleated Red Blood Cells % 0 %; Platelet Count 436 10^3/cmm (157-399); Red Blood Count 4.85 10^6/uL (3.85-5.65); White Blood Count 11.19 10^3/uL (3.29-11.43)
[2025-02-07 17:42] LABS: Alanine Aminotransferase 9 U/L (0-33); Albumin Level 4.6 g/dL (3.5-5.2); Alkaline Phosphatase 92 U/L (35-105); Anion Gap 19.6 (5-19); Aspartate Amino Transferase 14 U/L (0-32); Blood Urea Nitrogen 10 mg/dL (6-20); Calcium 9.9 mg/dL (8.5-10.5); Carbon Dioxide 24 mmol/L (22-29); Chloride 111 mmol/L (98-107); Creatinine Clr Calc Pharmacy 87.0727; Globulin 3.1 g/dL (1.3-4.6); Glucose 135 mg/dL (65-115); Osmolality Calculated 313 mOsm/kg (285-295); Potassium 3.6 mmol/L (3.5-5.1); Sodium 151 mmol/L (136-145); Total Protein 7.7 g/dL (6.6-8.7)
[2025-02-07 17:44] VITALS: BP 145/88
[2025-02-07 18:22] VITALS: BP 130/81; PULSE 71; O2SAT 100
[2025-02-07 18:45] VITALS: BP 132/94; PULSE 83; O2SAT 99
--- NOTE | 2025-02-07 18:49 | PC.NURSE ---
this nurse assumed pt care from Valerie MORGAN at 1845.
[2025-02-07 19:14] VITALS: BP 138/94; PULSE 75; RESP 16; O2SAT 99
== END 2025-02-07 19:14 | disposition home or self-care (01) ==
PROVIDERS: Emergency Provider Emergency Medicine
DX: T67.8XXA Other effects of heat and light, initial encounter (principal); X30.XXXA Exposure to excessive natural heat, initial encounter
CPT/HCPCS: 80053; 82550; 85025; 99283; J7030